=== PATIENT | male | born 1985 | race Caucasian/White ===

== ENCOUNTER 2023-05-14 02:34 | Emergency (ER) | payer OTHER ==
[2023-05-14 02:42] VITALS: BP 127/78; PULSE 78; RESP 18; TEMP 98.4; BMI 26.1
[2023-05-14 04:08] LABS: BASO % 0.5 % (0-2.0); EOS % 1.1 % (0-4.5); HEMATOCRIT 38.9 % (35.4-49); HEMOGLOBIN 13.6 GM/dL (11.7-16.9); LYMPH % 39.6 % (8-40); MCH 31.1 pg (25.7-33.7); MEAN CELL VOLUME 88.8 fl (80-96); MEAN PLT VOLUME 8.7 fl (7.5-11.1); NEUT % 51.8 % (42.8-82.8); PLATELET COUNT 241 10^3/uL (134-434); RBC 4.39 M/mm3 (4.00-5.60); RDW 12.4 % (11.9-15.9); WHITE BLOOD COUNT 7.1 K/mm3 (4.0-10.0)
[2023-05-14 04:30] LABS: POTASSIUM 3.9 mmol/L (3.5-5.1)
[2023-05-14 04:32] LABS: ALBUMIN 4.3 g/dl (3.4-5.0); BLOOD UREA NITROGEN 16.8 mg/dL (7-18)
[2023-05-14 04:59] LABS: BILIRUBIN,TOTAL 0.3 mg/dL (0.2-1)
== END 2023-05-14 05:37 | disposition home or self-care (01) ==
LOC: JER 02:34
DX: R20.0 Anesthesia of skin (principal); R53.1 Weakness; G62.9 Polyneuropathy, unspecified; Z20.822 Contact with and (suspected) exposure to COVID-19
CPT/HCPCS: 0241U-QW; 36415; 71046-TC-FY; 80053; 84484; 85025; 93005; 93010; 99285-25